=== PATIENT | female | born 1945 | race Caucasian/White ===

== ENCOUNTER 2016-05-30 12:37 | Emergency (ER) | payer MEDICARE ==
[~2016-05-30] VITALS: Ht 171.4 cm; Wt 103.2 kg
[~2016-05-30 12:37] MED LIST: ASPI81TA19 PO; LEVO125T6 PO; Metoprolol Tartrate PO
[2016-05-30 12:40] VITALS: BP 142/77; PULSE 86; RESP 20; O2SAT 96
[2016-05-30] MEDS ORDERED: MULT1CAP33 PO (12:45)
[2016-05-30] MEDS ORDERED: ASCO100089 PO (12:45)
[2016-05-30] MEDS ORDERED: ASPI325T32 PO (12:45)
[2016-05-30] MEDS ORDERED: CHOL200047 PO (12:45)
[2016-05-30] MEDS ORDERED: METO50TA3 PO (12:45)
--- NOTE | 2016-05-30 13:03 | ED.REPORT ---
HPI-Dyspnea / Wheezing Date of Service May 30, 2016 ED Provider: Dr. Howie Kirkpatrick MD A 70 year old female with a previous history of pleural effusion, aortic aneurysm repair, colon cancer s/p colectomy and hypothyroidism s/p thyroid ablation presents to the ED complaining of dyspnea that began approx. one week ago. Patient has been experiencing a dry non-productive cough, SOB and subjective fever that began four months ago but became increasingly worse this week. She reports that her current symptoms feel similar to her previous pleural effusion. Patient currently takes Metoprolol, aspirin and levothyroxine. She denies any abdominal pain or edema in the lower extremities. She was sent from Urgent Care after an Xray revealed a moderate sized pleural effusion. Nursing Notes Stated Complaint: SHORTNESS OF BREATH Chief Complaint: Respiratory Distress Nursing Notes Reviewed: Yes Allergies: Coded Allergies: No Known Allergies (Verified Allergy, Unknown, 05/30/16) Scheduled Amoxicillin/Clav K 875-125 mg (Augmentin 875-125 mg) 1 Each Tablet 1 TABLET PO BID Ascorbic Acid (Vitamin C) 1,000 Mg Tab.chew 1,000 MG PO DAILY Azithromycin (Zithromax (Z-Dc)) 250 Mg Tablet 250 MG PO DAILY Take two tablets by mouth on day 1, then take one tablet daily on days 2 through 5. Levothyroxine (Levothyroxine) 125 Mcg Tablet 125 MCG PO DAILY Metoprolol Tartrate (Metoprolol Tartrate) 50 Mg Tablet 50 MG PO BID Multivitamin (Multivitamins) 1 Each Capsule 1 EACH PO DAILY Scheduled PRN Benzonatate (Tessalon Perle) 100 Mg Capsule 100 MG PO TID PRN PRN For Cough Miscellaneous Medications Aspirin (Aspirin) 325 Mg Tablet 325 MG PO Cholecalciferol (Vitamin D3) (Vitamin D3) 2,000 Unit Capsule 2,000 UNIT PO General Time Seen by MD: 13:03 Chief Complaint Other (Dyspnea ) Hx Obtained From: Patient Arrived By: Walk-in Sudden in Onset?: No Onset Occurred: 1 week ago Symptom Duration: Since onset Location: : None Associated with: Reports: Cough, Fever, Denies: Leg swelling Pertinent Negative: Pt denies other symptoms Recent Healthcare: No recent doctor visit, No recent hospitalization Risk Factors CAD Risk Stratification Risk factors reviewed PE Risk Stratification Risk factors reviewed Past Medical History Past Medical History 1. Colon cancer 2. Hypothyroidism 3. GERD 4. Pleural effusion 5. Osteopenia Past Surgical History Aortic aneurysm repair - 2014 Chlecysectomy Colectomy Thyroid ablation Cardioversion Smoking History Unknown if Ever Smoker Social History Other Social History: Good social support, Local resident Ambulatory Status Independent Review of Systems Constitutional: Reports: Fever (subjective ), Denies: Chills Respiratory: Reports: Dyspnea on exertion, Non-productive cough, Shortness of breath Cardiovascular: Denies: Chest pain Musculoskeletal: Denies: Extremity swelling Complete sys rev & neg: except as marked. GI: Denies: Abdominal pain, Nausea, Vomiting Physical Exam Initial Vital Signs Vital Signs (First) Date Time Temp Pulse Resp B/P Pulse Ox O2 Delivery O2 Flow Rate FiO2 05/30/16 12:40 36.7 86 20 142/77 96 Room Air Initial VS: Reviewed Head / Eyes: Atraumatic, Normocephalic, PERRL Extremities: Vascular intact, Neuro intact, No swelling, No tenderness Skin: Warm, Dry, No cyanosis Neurologic: Alert, Oriented, Nonfocal Psychiatric: Mood/affect normal, Behavior normal, Normal thought content General/Constitutional: Awake, Alert Neck: Atraumatic, Supple, No JVD Respiratory / Chest: Atraumatic RESPIRATORY: Decreased breath sounds in the right lung Cardiovascular: Heart rate NL, Regular rhythm, Heart sounds NL Interpretation & Diagnostics CHEST US Read by Radiology IMPRESSION: Oxacillin for thoracentesis a moderate-sized right-sided pleural effusion. Dictated by: Keisha Aguirre MD, PhD on 05/30/2016 at 15:28 Lab Results Interpretation Result Diagram: 05/30/16 1335 05/30/16 1445 Test 05/30/16 13:00 05/30/16 13:35 05/30/16 14:45 05/30/16 15:20 Hold Urine Received (Received) White Blood Count 11.5th/mm3 (3.8-10.1) Red Blood Count 4.42mil/mm3 (3.90-5.20) Hemoglobin 13.1g/dL (12.0-15.6) Hematocrit 38.5% (35.0-46.0) Mean Corpuscular Volume 87.1fL (81-100) Mean Corpuscular Hemoglobin 29.6pg (27.0-35.0) Mean Corpuscular Hemoglobin Concent 34.0% (32.0-37.0) Red Cell Distribution Width 14.7% (12.3-15.4) Platelet Count 722bil/L (150-400) Neutrophils (%) (Auto) 78.6% (40-74) Lymphocytes (%) (Auto) 9.6% (14-46) Monocytes (%) (Auto) 9.8% (4-12) Eosinophils (%) (Auto) 1.5% (0-5) Basophils (%) (Auto) 0.3% (0-3) Hold [place] Top Tube Received (Received) Prothrombin Time 10.7sec (8.1-12.5) Prothromb Time International Ratio 1.00ratio Sodium Level 136mEq/L (134-144) Potassium Level 4.3mEq/L (3.5-5.2) Chloride Level 97mEq/L (97-108) Carbon Dioxide Level 25mmol/L (18-29) Blood Urea Nitrogen 10mg/dL (8-27) Creatinine 0.61mg/dL (0.57-1.00) Estimat Glomerular Filtration Rate 138mL/min (>59) Glucose Level 105mg/dL (60-99) Calcium Level 9.0mg/dL (8.5-10.1) Total Bilirubin 0.4mg/dL (0.0-1.2) Aspartate Amino Transf (AST/SGOT) 19U/L (0-50) Alanine Aminotransferase (ALT/SGPT) 16U/L (0-32) Alkaline Phosphatase 71U/L (25-165) Pro-B-Type Natriuretic Peptide 318.0pg/mL (0-301) Total Protein 6.8g/dL (6.4-8.4) Albumin 3.7g/dL (3.4-5.0) Procalcitonin 0.07ng/mL (0.00-0.08) Body Fluid Source Pleural fluid Body Fluid Color Yellow (Clear) Body Fluid Appearance Cloudy Body Fluid WBC 1400/mm3 Body Fluid RBC 8100/mm3 Body Fluid Polynuclear WBCs 21% Body Fluid Lymphocytes 71% Body Fluid Monocytes 8% Body Fluid Eosinophils 0% Body Fluid Basophils 0% Body Fluid Lactate Dehydrogenase 214U/L Pleural Fluid Total Protein 4.9g/dL Pleural Fluid Glucose 121mg/dL X-Ray Chest Interpretation Chest Xray Interpretation: IMPRESSION: 1. No post thoracentesis pneumothorax. 2. Opacification left lung base suspicious for pneumonia. Recommend followup imaging to resolution to exclude underlying neoplastic process. Dictated by: Keisha Aguirre MD, PhD on 05/30/2016 at 16:06 Interpretation / Wet Read by: Interpret - Radiologist Procedures THORACENTESIS PROCEDURE 1504 Performed by ED Physician Consent from Patient Time out performed Sterile drapes applied Hand hygiene observed Patient is sitting up Pulse ox is applied consulting systems engineer applied Local anaesthesia: Lido 1% 6cc Needle: 6 [place] Fluid obtained: 1100mL Culture obtained and sent to lab Dressing applied No complications Patient tolerates procedure Condition Improved Re-Eval/Medical Decision Med Decision/Clinical Course Patient underwent a therapeutic thoracentesis, overall she does not appear to be septic, there is some question whether there is an underlying pneumonia within her pleural effusion on the right side, she will be treated with broad-spectrum antibiotics, Augmentin and azithromycin. She feels well, has been ambulatory while in the ER, has significant improvement after thoracentesis without post procedure pneumothorax. She wishes to his agreeable to go home. Her primary care on-call was contacted who agrees to help establish very close follow-up. Very strict return and follow-up precautions were given. Re-Evaluation/Progress #1: Time of Eval: 15:04 Patient Status: Condition improved Re-Evaluation/Progress Note: Thoracentesis is performed. Patient tolerates procedure well. Patient is informed of her lab results and US results. All questions are addressed and she agrees with treatment plan. Re-Evaluation/Progress #2: Time of Eval: 16:40 Patient Status: Condition improved Re-Evaluation/Progress Note: Patient is rechecked. Her breathing has improved. She is informed of her repeat chest X-ray results and follow up treatment plan. Re-Evaluation/Progress #3: Time of Eval: 17:40 Patient Status: Condition improved Re-Evaluation/Progress Note: Patient is rechecked. She is informed of the consult recommendations and agrees to close follow-up. Consultation : Referral / Consult Name: Bryce Linder MD Consulted With: Hospitalist Call Returned at: 17:35 Cab Station Attendant: Agrees with eval, Agrees with plan Note: Agrees with plan to prescribe Augmentin and Z-pack with close follow-up Recommends patient call the clinic on Wednesday Counseled Regarding: Diagnosis, Lab results, Need for follow-up, When/why to return to ED Discharge & Departure Impression: Primary Impression: Pleural effusion Additional Impression: Pneumonia Pneumonia type: due to unspecified organism Laterality: right Lung location : unspecified part of lung Qualified Code: J18.9 - Pneumonia, unspecified organism Disposition: Home Discharge Condition All VS Reviewed: Yes Condition: Stable Patient Instructions: Pleural Effusion (ED) Additional Instructions: Thank you for trusting us with your care this afternoon. Your initial emergency department chest X-ray revealed a pleural effusion and possible underlying pneumonia. We performed a thoracentesis and sent the fluid off for testing. Repeat chest X-ray revealed some leftover fluid and I recommend that you schedule a follow up appointment with your primary care physician for Wednesday. Take Augmentin and Z-pack as prescribed. Use Tessalon Pearles for your cough. I recommend that you avoid coughing, sneezing, or heavy lifting for the next few weeks. Please return to the emergency department for any new or worsening conditions including any difficulty breathing, numbness/tingling, worsening fevers, chills or chest pain. We hope that you begin feeling better soon. Referrals: Ivis Hargrove (PCP) Scribe Attestation Portions of this note were transcribed by Lorie Carrasquillo. I, Dr. Jared Kirkpatrick personally performed the history, physical exam and medical decision-making; I reviewed and confirmed the accuracy of the information in the transcribed note. Signed by: Altaf Orozco, 05/30/16 1800. copies to: Ivis Hargrove Timothy S DO May 30, 2016 13:03 LORIE CARRASQUILLO May 30, 2016 13:18
[2016-05-30 13:47] LABS: BASOPHILS % (AUTO) 0.3 % (0-3); EOSINOPHILS % (AUTO) 1.5 % (0-5); MONOCYTES % (AUTO) 9.8 % (4-12); Mean Corpuscular Hemoglobin 29.6 pg (27.0-35.0); Mean Corpuscular Volume 87.1 fL (81-100); NEUTROPHILS % (AUTO) 78.6 % (40-74); Platelet Count 722 bil/L (150-400)
--- NOTE | 2016-05-30 15:30 | DRSVH ---
PROCEDURE: US CHEST/PLEURAL SONOGRAM INDICATIONS: eval placement for thoracentesis in ER COMPARISON: [facility], CR, XR CHEST 2VW, 05/30/2016, 11:44. FINDINGS: Moderate-sized right-sided pleural effusion is noted. Access site marked for thoracentesi s. IMPRESSION: Oxacillin for thoracentesis a moderate-sized right-sided pleural effusion. Dictated by: Keisha Aguirre MD, PhD on 05/30/2016 at 15:28 Approved by: Keisha Aguirre MD, PhD on 05/30/2016 at 15:29
--- NOTE | 2016-05-30 16:09 | DRSVH ---
PROCEDURE: X-RAY CHEST, TWO VIEWS ([id number]) INDICATIONS: post thoracentesis, 1100ml removed TECHNIQUE: 2 views of the chest were acquired. COMPARISON: [facility], CR, XR CHEST 2VW, 05/30/2016, 11:44. FINDINGS: Surgical changes and devices: Median sternotomy wires. Lungs and pleura: Small right-sided effusion is decreased in size compared to prior study obtained 05/30/16 at 1144 hrs. compatible with thoracentesis. Increased opacification noted in the ri ght lung base suspicious for pneumonia. Mediastinum: Mediastinal contours are normal. Heart size is normal. Bones and chest wall: No suspicious bony abnormalities. Soft tissues appear unremarkable. IMPRESSION: 1. No post thoracentesis pneumothorax. 2. Opacification left lung base suspicious for pneumonia. Recommend followup imaging to resolution to exclude underlying neoplastic process. Dictated by: Keisha Aguirre MD, PhD on 05/30/2016 at 16:06 Approved by: Keisha Aguirre MD, PhD on 05/30/2016 at 16:07
[2016-05-30 16:40] VITALS: BP 132/52; PULSE 72; RESP 16; O2SAT 96
[2016-05-30 16:58] LABS: TOTAL PROTEIN,PLEURAL FLUID 4.9 g/dL
[2016-05-30 17:04] LABS: BFWBC 1400 /mm3; MONOCYTES,BODY FLUID 8 %; OTHER CELLS,BODY FLUID 0
[2016-05-30] MEDS ORDERED: Amoxicillin-Clav 875-125 mg Tablet PO ONE (17:50)
[2016-05-30] MEDS ORDERED: BENZ-12 PO (17:55)
[2016-05-30] MEDS ORDERED: AMOX-366 PO (17:55)
[2016-05-30] MEDS ORDERED: AZIT250T4 PO (17:55)
[2016-05-30 18:10] VITALS: BP 130/56; PULSE 71; RESP 16; O2SAT 97
[2016-07-28] MEDS ORDERED: CHOL10008 PO (13:01)
[2016-07-28] MEDS ORDERED: [UNRECOGNIZED DRUG - OTHER] PO (13:01)
[2016-07-28] MEDS ORDERED: [UNRECOGNIZED DRUG - OTHER] PO (13:01)
[2016-07-28] MEDS ORDERED: MAGN100T PO (13:01)
[2016-07-28] MEDS ORDERED: FORSKOLIN PO (13:01)
[2016-07-28] MEDS ORDERED: TURMERIC PO (13:01)
[2016-07-28] MEDS ORDERED: CALCIUM 250 MG PO (13:01)
[2016-07-28] MEDS ORDERED: UBID100C16 PO (13:01)
[2016-07-28] MEDS ORDERED: GARCINIA CAMBOGIA PO (13:01)
[2016-07-28] MEDS ORDERED: [UNRECOGNIZED DRUG - OTHER] PO (13:01)
[2016-07-28] MEDS ORDERED: RED600TA PO (13:01)
[2016-08-12] MEDS ORDERED: PROC-4 PO (11:45)
[2016-08-12] MEDS ORDERED: ONDA8TAB7 SL (11:45)
[2016-08-12] MEDS ORDERED: METO75TA PO (11:45)
[2016-08-12] MEDS ORDERED: GABA-502 PO (11:45)
[2016-08-19] MEDS ORDERED: LOPE-147 PO (15:24)
[2016-08-19] MEDS ORDERED: ACET-171 PO (15:26)
== END 2016-05-30 18:12 | disposition home or self-care (01) ==
LOC: SED 12:37
DX: J90 Pleural effusion, not elsewhere classified (principal); J18.9 Pneumonia, unspecified organism; E03.9 Hypothyroidism, unspecified; K21.9 Gastro-esophageal reflux disease without esophagitis; Z85.038 Personal history of other malignant neoplasm of large intestine; Z98.890 Other specified postprocedural states; Z90.49 Acquired absence of other specified parts of digestive tract; Z86.79 Personal history of other diseases of the circulatory system; Z79.82 Long term (current) use of aspirin
CPT/HCPCS: 32555; 36415; 71020; 76604; 80053; 82945; 83615; 83880; 83986; 84145; 85025; 85610; 87070; 87075; 87205; 89051; 99285; G0463

== ENCOUNTER 2016-08-06 07:52 | Day surgery (SDC) | payer MEDICARE ==
[~2016-08-06] VITALS: Ht 170.2 cm; Wt 98.9 kg
--- NOTE | 2016-08-06 07:01 | PCM.HPANE ---
Patient Data Surgeon Admitting Provider: Attending Provider:Marvin Lan MD Primary Care Physician:Ivis Hargrove Other Provider:Saima Delaney Anesthesia Reason for Visit Colon Cancer Ht/WT & BMI Height (Feet): 5 Height (Inches): 7 Weight (Kilograms): 98.88 Body Mass Index 34.00 Allergies Coded Allergies: No Known Allergies (Verified Allergy, Unknown, 07/28/16) Past Anesthesia History Anesthesia History: Denies:: Abnormal Airway, Anesthesia Reactions, Difficult Intubation, Fam Anesthesia Reaction, Fam Malignant Hypertherm, Malignant Hyperthermia Diabetes History Hx Diabetes?: No MRSA MRSA: No Medications Home Meds Incl Beta Elaina: Yes Active Scripts Levothyroxine 125 Mcg [id number] Mcg PO DAILY For Thyroid Replacement #30 TABLET Ref 0 Prov:Memo Kennedy DO 07/04/13 Reported Medications [Active Flex Support] No Conflict [id number] Mg PO BID 07/28/16 [Turmeric W/Bioperine] No Conflict [id number] Mg PO BID 07/28/16 [Forskolin 250 Mg] No Conflict Uplez771 Mg PO BID 07/28/16 [Garcinia Cambogia] No Conflict Check1,000 Mg PO BID 07/28/16 [Tono,Mag,Zinc,D3] No Conflict Check1 Tab PO DAILY 07/28/16 Ubidecarenone (Coq-10)100 Mg [id number] Mg PO DAILY 07/28/16 [Calcium 250MG] No Conflict Check2 Tab PO DAILY 07/28/16 Red Yeast Rice 600 Mg Tablet1,200 Mg PO DAILY 07/28/16 Magnesium Glycinate (Mag Glycinate)100 Mg [id number] Mg PO DAILY 07/28/16 Cholecalciferol (Vitamin D3) (Vitamin D3)1,000 Unit Tab.chew1,000 Unit PO DAILY 07/28/16 Ascorbic Acid (Vitamin C)1,000 Mg Tab.chew1,000 Mg PO DAILY Ref 0 05/30/16 Multivitamin (Multivitamins)1 Each Capsule1 Each PO DAILY 05/30/16 Aspirin 325 Mg Swfbyx722 Mg PO DAILY 05/30/16 Metoprolol Tartrate 50 Mg Pkvzdp16 Mg PO BID 05/30/16 History History of ENT Problems?: No HEENT History: Denies:: Abnormal Airway Cataracts Difficult Intubation Dysphagia Glaucoma Hearing Problem Sinus Problem TMJ Denture Type: None Teeth Condition: Within Normal Limits Hx of Heart Problems?: Yes Cardiovascular History: Positive for:: Hypertension Denies:: AICD Atrial Fibrillation Chest Pain Congestive Heart Failure Heart Murmur Pacemaker Rheumatic Fever Thrombophlebitis Valvular Heart Disease Hx of Respiratory Problem?: No Respiratory History: Positive for:: Pneumonia (98) Denies:: Asthma COPD Cough Dyspnea Emphysema Hemoptysis Tuberculosis Hx Neurologic Problems?: No Neurological History: Denies:: Alzheimer's Disease CVA Dementia Dizziness Headaches Seizures Hx of GI Problems?: Yes Hx of Problems?: No Genitourinary History: Denies:: HX of Hemodialysis Kidney Stones Urinary Tract Infection Female Hx: Denies:: Endometriosis Pelvic Inflammatory Problems with Breasts? Skin History: Denies:: History Skin Disorders? Pressure Ulcers Hx Musculoskeletal Problems?: Yes Musculoskeletal History: Positive for:: Back Injury (NECK STIFFNESS) Joint Replacement Denies:: Musculoskeletal Trauma Hx of Psycho/Social Problems?: No Psycho Social History: Denies:: Anxiety Bipolar Disorder Hx Depression Hx Surgeries?: Yes (COLECTOMY, LAP CANDIDA, AAA) Hx Any Other Health Problems?: No Other History: Positive for:: Cancer (COLON CA, METS TO LUNGS) Hospitalization Thyroid Disease Denies:: Endocrine Disease History Blood Transfusions: Denies:: Blood Transfusions Hx Diabetes: No Hx Alcohol Use: NoHx Substance Use: No Smoking Status: Unknown if Ever Smoker Have You Smoked inLast 12 mo: No Stop/Bang S-Snoring: Do You Snore Loudly: Yes T-Tired: feel tired, fatigued: No O-Obsered: Observed not breath: No P-Blood Pressure: treated: Yes B- Body Mass Index > 35 kg/m2: No A- Age over 50: Yes N- Neck Large Circumference: No G- Gender Male: No LAURA Total Score: 3 Risk Assessment Category Category 1A: Patient has history of documented sleep apnea, and HAS NOT received any narcotic, sedative or anesthesia administration during this stay. Category 1B: Patient has history of documented sleep apnea, and HAS received any narcotic , sedative or anesthesia administration during this stay Category 2: Patient has SUSPECTED Obstructive Sleep Apnea, and HAS received any narcotic , sedative or anesthesia administration during this stay. Category 3: Patient has SUSPECTED Obstructive Sleep Apnea and HAS NOT received narcotic, sedative or anesthesia administration during this stay. Category 4: Outpatient in Procedural Areas with known sleep apnea or who screen positive for High Risk via the STOP/BANG questionnaire. Exam Exam General Appearance: Alert HEENT/AIRWAY: MP 2 Lungs: Clear to Auscultation Heart: Exam Unremarkable Plan Impression Patient chart reviewed, patient interviewed and anesthestic plan with risks, benefits, and alternatives discussed, and informed consent obtained. NPO per Anesth. Guidelines: Yes ASA Physical Status: ASA2 Mod Systemic Disease Anesthetic Plan: MAC Bene/Risks/Altern/Consents: Yes HP Complete Prior to Induction: Yes Juan Mccauley MD August 06, 2016 07:01
[~2016-08-06 07:52] MED LIST changes: +ASCO100089 PO; +ASPI325T32 PO; -ASPI81TA19 PO; +CALCIUM 250 MG PO; +CHOL10008 PO; +CeFAZolin Inj 2 GM in IV Premix 1 EACH IV SCH; +FORSKOLIN PO; +GARCINIA CAMBOGIA PO; +Lactated Ringer's 1,000 ML IV SCH; +MAGN100T PO; +METO50TA3 PO; +MULT1CAP33 PO; -Metoprolol Tartrate PO; +RED600TA PO; +TURMERIC PO; +UBID100C16 PO; +[UNRECOGNIZED DRUG - OTHER] PO; +[UNRECOGNIZED DRUG - OTHER] PO; +[UNRECOGNIZED DRUG - OTHER] PO
[2016-08-06] MEDS ORDERED: Ondansetron 2 mg/mL 2 mL Inj ONE (07:53)
[2016-08-06] MEDS ORDERED: Propofol 10,000 mCg/mL 20 mL Inj ONE (07:53)
[2016-08-06] MEDS ORDERED: fentaNYL-PF 50 mCg/mL 2 mL Inj ONE (07:53)
[2016-08-06] MEDS ORDERED: Lactated Ringer's 1,000 ML IV ONE (08:17)
[2016-08-06 08:24] VITALS: BP 127/63; PULSE 77; RESP 18; O2SAT 95
[2016-08-06] MEDS ORDERED: Lactated Ringer's 1,000 ML IV SCH (09:42)
[2016-08-06] MEDS ORDERED: Lactated Ringer's 500 ML IV PRN (09:42)
[2016-08-06] MEDS ORDERED: HYDROmorphone 1 mg/mL Inj IVPUSH PRN (09:45)
[2016-08-06] MEDS ORDERED: Dexamethasone 4 mg/mL Inj IVPUSH PRN (09:45)
[2016-08-06] MEDS ORDERED: fentaNYL-PF 50 mCg/mL 2 mL Inj IVPUSH PRN (09:45)
[2016-08-06] MEDS ORDERED: hydrALAZINE 20 mg/mL Inj IVPUSH PRN (09:45)
[2016-08-06] MEDS ORDERED: EPHEDrine Sulfate 50 mg/mL Inj IVPUSH PRN (09:45)
[2016-08-06] MEDS ORDERED: Labetalol 5 mg/mL 4 mL Inj IV PRN (09:45)
[2016-08-06] MEDS ORDERED: Ondansetron 2 mg/mL 2 mL Inj IVPUSH PRN (09:45)
[2016-08-06] MEDS ORDERED: Phenylephrine 10,000 mCg/mL Inj IVPUSH PRN (09:45)
[2016-08-06] MEDS ORDERED: Atropine 0.4 mg/mL Inj IVPUSH PRN (09:45)
[2016-08-06] MEDS ORDERED: Bupivacaine-MPF 0.25%/EPI 30 mL Inj INFILTRATE ONE (09:47)
[2016-08-06] MEDS ORDERED: HepLOK Flush 100 unit/mL 5 mL Inj IVFLUSH ONE (09:47)
[2016-08-06] MEDS ORDERED: Lidocaine 1% 50 mL Inj INFILTRATE ONE (09:47)
[2016-08-06 10:31] VITALS: BP 132/65; PULSE 72; RESP 17; O2SAT 96
--- NOTE | 2016-08-06 10:48 | OP ---
[address] [address] OPERATIVE REPORT PATIENT: ABBY CAMPOS : 1945 MR#: [id number] ADMIT: 08/06/2016 JOB ID: [id number] DATE OF SURGERY: 08/06/2016 ANESTHESIA: MAC with local. PREOPERATIVE DIAGNOSIS(ES): Recurrent metastatic colon cancer. POSTOPERATIVE DIAGNOSIS(ES): Recurrent metastatic colon cancer. OPERATIVE PROCEDURE: Insertion of left subclavian vein Port-A-Cath using fluoroscopy with interpretation for guidance. SURGEON: Marvin Lan MD. COMMUNICATIONS TECHNOLOGIST: None. COMPLICATIONS: None. ESTIMATED BLOOD LOSS: Less than 5 mL. CONDITION: Satisfactory. SPECIMEN: None. FINDINGS: A regular profile port was inserted without complication. INDICATIONS/SIGNIFICANT HISTORY: The patient is a 70-year-old female, who recently was diagnosed with recurrent metastatic colon cancer, for which she is scheduled to undergo chemotherapy next week. OPERATIVE PROCEDURE: The patient was brought into the operating room and placed in a supine position. Sedation was administered, and perioperative antibiotics were given. The neck and chest were prepped and draped in a standard surgical fashion, and a procedural pause was performed. The left subclavian vein was accessed with the first pass with a finder needle. A wire was inserted and fluoroscopically confirmed to be in the venous system. The wire was seen to course through the heart, down into the inferior vena cava. Local anesthetic was injected. A left subcutaneous pocket was created. Regular profile Port-A-Cath was secured in place using three 2-0 Prolene sutures. The catheter was then tunneled up to the wire exit point and then inserted into the vein using the Seldinger technique under fluoroscopic visualization. Good final position was confirmed with fluoroscopy. The port aspirated and flushed nicely. This was locked with heparin. The skin was then closed with 3-0 Vicryl interrupted, followed by running 4-0 Monocryl. Dermabond was applied. The entire procedure was well tolerated without complication.
--- NOTE | 2016-08-06 10:59 | PCM.ANEP1 ---
Post Anesthesia PACU Phase 1 Assessment Vital Signs Vital Signs Date Time Temp Pulse Resp B/P Pulse Ox O2 Delivery O2 Flow Rate FiO2 08/06/16 10:31 36.6 72 17 132/65 96 Room Air 08/06/16 08:24 36.1 77 18 127/63 95 Room Air Anesthetic Administered: MAC Level of Alertness: Awake, talking EUBANKS's with Equal Strength: Yes Pain: No Nausea or Vomiting: No CV Function & Hydration Stable: No Airway Device: Oxygen Delivery: Room Air Lungs: Normal Air Movement PACU Phase 2 Assessment Complications: No Follow up Care: No Patient Instructions Provided: N/A Juan Mccauley MD August 06, 2016 10:59
[2016-08-12] MEDS ORDERED: PROC-4 PO (11:45)
[2016-08-12] MEDS ORDERED: GABA-502 PO (11:45)
[2016-08-12] MEDS ORDERED: ONDA8TAB7 SL (11:45)
[2016-08-12] MEDS ORDERED: METO75TA PO (11:45)
[2016-08-19] MEDS ORDERED: LOPE-147 PO (15:24)
[2016-08-19] MEDS ORDERED: ACET-171 PO (15:26)
== END 2016-08-06 23:59 | disposition home or self-care (01) ==
LOC: SAS 07:52
PROVIDERS: ATTEND General Practice
DX: C18.9 Malignant neoplasm of colon, unspecified (principal); C78.00 Secondary malignant neoplasm of unspecified lung; I10 Essential (primary) hypertension; K21.9 Gastro-esophageal reflux disease without esophagitis; I48.91 Unspecified atrial fibrillation; E78.5 Hyperlipidemia, unspecified; E03.9 Hypothyroidism, unspecified; E66.8 Other obesity; Z90.49 Acquired absence of other specified parts of digestive tract; Z68.33 Body mass index [BMI] 33.0-33.9, adult
CPT/HCPCS: 36561; 77001; C1788; J0690; J1642; J2250; J2405; J3010; J7120